=== PATIENT | female | born 1985 | race Caucasian/White ===

== ENCOUNTER 2017-02-03 14:19 | Inpatient (IN) | payer MEDICAID, OTHER ==
[2017-02-03] MEDS ORDERED: PITOCin/NS 20 UNIT/1000ML DRIP 20 UNITS/1,000 ML BAG IV SCH (15:00)
[2017-02-03] MEDS ORDERED: NORCO 5/325 PO PRN (15:33)
[2017-02-03] MEDS ORDERED: DULCOLAX PR PRN (15:33)
[2017-02-03] MEDS ORDERED: BENADRYL PO PRN (15:33)
[2017-02-03] MEDS ORDERED: ZOFRAN IV PRN (15:33)
[2017-02-03] MEDS ORDERED: PHENERGAN PR PRN (15:33)
[2017-02-03] MEDS ORDERED: PHENERGAN PO PRN (15:33)
[2017-02-03] MEDS ORDERED: TYLENOL PO PRN (15:33)
[2017-02-03] MEDS ORDERED: MILK OF MAGNESIA PO PRN (15:33)
[2017-02-03] MEDS ORDERED: LANSINOH TP PRN (15:33)
[2017-02-03] MEDS ORDERED: TUCKS PAD TP PRN (15:33)
[2017-02-03] MEDS ORDERED: SODIUM CHLORIDE FLUSH SYRINGE 10 ML IV NR (16:00)
[2017-02-03] MEDS: MOTRIN PO SCH ×2 (16:24→22:28)
[2017-02-03] MEDS ORDERED: PITOCin/NS 20 UNIT/1000ML DRIP 20,000 MILLIUNITS/1,000 ML BAG IV ONE (17:06)
[2017-02-03 17:07] LABS: Urine Drugs of Abuse Note Disclamer
[2017-02-03 17:16] LABS: Basophils % (Auto) 0.2 % (0.0-1.8); Hematocrit 36.9 % (30.3-42.9); Hemoglobin 12.2 gm/dl (10.1-14.3); Mean Corpuscular HGB Conc 33 % (30-34); Mean Corpuscular Hemoglobin 28 pg (28-32); Mean Corpuscular Volume 85 fl (79-97); Platelet Count 282 K/mm3 (140-440); Red Blood Count 4.36 M/mm3 (3.65-5.03); Red Cell Distribution Width 15.3 % (13.2-15.2); White Blood Count 11.8 K/mm3 (4.5-11.0)
[2017-02-03 17:34] LABS: HIV-1 Antigen p24 Non React (Non React); HIVR-1/2 Ab Non React (Non React)
--- NOTE | 2017-02-03 20:08 | History and Physical Report ---
History of Present Illness Date of examination: 02/03/17 Date of admission: 02/03/17 14:19 Chief complaint: Home delivery History of present illness: 31y/o @ 40+1 weeks presents to L&D after having a home delivery performed by the patient's spouse. states the placenta delivered and was thrown away. Patient did not have care during this . Past History Past Medical History: no pertinent history Past Surgical History: no surgical history Social history: - Obstetrical History Expected Date of Delivery: 02/02/17 Actual Gestation: 40 Week(s) 1 Day(s) : 6 Para: 5 Hx # Term Pregnancies: 5 Number of Pregnancies: 0 Spontaneous Abortions: 1 Induced : 0 Number of Living Children: 5 Medications and Allergies Allergies Allergy/AdvReac Type Severity Reaction Status Date / Time No Known Allergies Allergy Verified 12/05/14 14:48 Home Medications Medication Instructions Recorded Confirmed Last Taken Type Ferrous Sulfate [Feosol 325 MG tab] 325 mg PO BID #60 tablet 02/02/16 Unknown Rx Ibuprofen [Motrin 600 MG tab] 600 mg PO Q6HR #30 tablet 02/02/16 Unknown Rx Vit-Fe Fumar-FA [ 1 each PO QDAY #30 tablet 02/02/16 Unknown Rx Vitamin] Active Meds: Active Medications Acetaminophen (Tylenol) 650 mg PO Q4H PRN PRN Reason: Pain MILD(1-3)/Fever >100.5/[place] Acetaminophen/Hydrocodone Bitart ([place] 5/325) 2 each PO Q6H PRN PRN Reason: Pain, Moderate (4-6) Bisacodyl (Dulcolax) 10 mg PA BID PRN PRN Reason: Constipation Diphenhydramine HCl (Benadryl) 25 mg PO Q6H PRN PRN Reason: Itching Oxytocin/Sodium Chloride (Pitocin/Ns 20 Unit/1000ml Drip) 20 units in 1,000 mls @ 0 mls/hr IV DIRECT RODRÍGUEZ PRN Reason: As Directed Ibuprofen (Motrin) 600 mg PO Q6H RODRÍGUEZ Last Admin: 02/03/17 16:24 Dose: 600 mg Influenza Virus Vaccine Quadrival (Fluarix Quad [id number](36 Mos+) 0.5 ml IM .ONCE ONE Stop: 02/04/17 12:01 Magnesium Hydroxide (Milk Of Magnesia) 30 ml PO HS PRN PRN Reason: Constipation Multi-Ingredient Ointment (Lansinoh) 1 applic TP PRN PRN PRN Reason: Sore Nipples Ondansetron HCl (Zofran) 4 mg IV Q8H PRN PRN Reason: Nausea And Vomiting Promethazine HCl (Phenergan) 25 mg PA Q6H PRN PRN Reason: Nausea And Vomiting Promethazine HCl (Phenergan) 25 mg PO Q6H PRN PRN Reason: Nausea And Vomiting Sodium Chloride (Sodium Chloride Flush Syringe 10 Ml) 10 ml IV PRN NR Stop: 02/04/17 15:59 Witch Itzel/Glycerin (Tucks Pad) 1 each TP PRN PRN PRN Reason: Hemorrhoid/cleansing/soothing Review of Systems All systems: negative Genitourinary: vaginal bleeding, leakage of fluid, contractions - Vital Signs Vital signs: Vital Signs Temp 97.9 F 02/03/17 14:20 Temp Pulse Resp BP Pulse Ox 98.1 F 80 18 91/56 97 02/03/17 17:15 02/03/17 17:15 02/03/17 17:15 02/03/17 17:15 02/03/17 14:42 - Physical Exam Breasts: Positive: deferred Cardiovascular: Regular rate Lungs: Positive: Clear to auscultation Abdomen: Positive: normal appearance Results Result Diagrams: 02/03/17 14:30 Abnormal lab results 02/03/17 Range/Units 14:30 WBC 11.8 H (4.5-11.0) K/mm3 RDW 15.3 H (13.2-15.2) % Lymph % (Auto) 6.0 L (13.4-35.0) % Lymph # 0.7 L (1.2-5.4) K/mm3 Seg Neutrophils % 89.7 H (40.0-70.0) % Seg Neutrophils # 10.6 H (1.8-7.7) K/mm3 All other labs normal. Assessment and Plan - Patient Problems (1) Precipitous delivery, delivered (current hospitalization) Current Visit: Yes Status: Acute Plan to address problem: routine care (2) Limited care Current Visit: No Status: Acute
--- NOTE | 2017-02-03 20:14 | Procedure Note ---
OB Delivery Note - Delivery Date of Delivery: 02/03/17 Surgeon: MARLEY BALDERAS - Vaginal Intrapartum events: no care, other(please specify) (precipitious delivery) Route of delivery: Anesthesia: none Delivery comments: Patient had a precipitous delivery performed at home by her spouse. Liveborn male infant weight 3.2Kg. Spouse states that placenta was thrown away. Fundus firm and bleeding scant at presentation. - Infant A Infant Gender: Male (weight 3.2Kg)
[2017-02-04] MEDS: MOTRIN PO SCH ×3 (03:59→23:44)
[2017-02-04 06:14] LABS: Hematocrit 29.4 % (30.3-42.9); Hemoglobin 9.6 gm/dl (10.1-14.3)
--- NOTE | 2017-02-04 10:16 | Progress Note ---
Assessment and Plan PPD#1 precipitous ( placneta discarded on way to hospital) evaluated perineum small left labial lac not bleeding small clot in vault removed, uterus firm below umbilicus routine PP care iron for anemia 12-9 Hemoglobin VSS consider d/c home tomorrow Subjective - Subjective Date of service: 02/04/17 Principal diagnosis: precipitous Patient reports: appetite normal, voiding normally, pain well controlled, flatus , ambulating normally : doing well Objective - Vital Signs Latest vital signs: Vital Signs Temp Pulse Resp BP BP Pulse Ox 02/04/17 08:10 98.2 F 59 L 18 91/59 02/04/17 03:59 16 02/04/17 00:51 98.8 F 71 20 100/58 02/03/17 23:28 16 02/03/17 22:28 16 02/03/17 20:50 98.7 F 82 16 97/51 02/03/17 17:15 98.1 F 80 18 91/56 02/03/17 16:56 99.3 F 16 02/03/17 16:37 75 101/63 02/03/17 16:22 81 99/56 02/03/17 16:07 89 100/58 02/03/17 15:52 88 101/55 02/03/17 15:37 81 102/77 02/03/17 15:22 83 103/63 02/03/17 15:07 85 99/61 02/03/17 14:52 90 105/66 02/03/17 14:42 95 H 97 02/03/17 14:37 96 H 107/66 97 02/03/17 14:32 88 98 02/03/17 14:27 99 H 97 02/03/17 14:20 97.9 F Intake and Output 02/03/17 02/04/17 02/04/17 23:59 07:59 15:59 Intake Total 600 240 240 Output Total 700 Balance -100 240 240 Intake: Oral 240 Intake, Free Water 600 240 Output: Urine 700 Void 700 Other: Total, Intake Amount 240 Total, Output Amount 300 # Voids Void 1 - Exam Breasts: Present: normal Cardiovascular: Present: Regular rate, Normal S1 Lungs: Present: Clear to auscultation, Normal air movement Abdomen: Present: normal appearance, soft, tenderness, guarding, normal bowel sounds. Absent: distention Vulva: both: normal Uterus: Present: normal, firm, bogginess, fundal height below umbilicus. Absent : tenderness Extremities: Present: normal Deep Tendon Reflex Grade: Normal +2 Incision: Present: normal - Labs Labs: Abnormal lab results 02/03/17 02/04/17 Range/Units 14:30 05:13 WBC 11.8 H (4.5-11.0) K/mm3 Hgb 9.6 L (10.1-14.3) gm/dl Hct 29.4 L D (30.3-42.9) % RDW 15.3 H (13.2-15.2) % Lymph % (Auto) 6.0 L (13.4-35.0) % Lymph # 0.7 L (1.2-5.4) K/mm3 Seg Neutrophils % 89.7 H (40.0-70.0) % Seg Neutrophils # 10.6 H (1.8-7.7) K/mm3
[2017-02-04] MEDS ORDERED: Fluarix Quad 2017-2018(36 MOS+ IM ONE (12:00)
[2017-02-05] MEDS: MOTRIN PO SCH ×4 (01:11→17:43)
--- NOTE | 2017-02-05 08:21 | Progress Note ---
Assessment and Plan - Patient Problems (1) Precipitous delivery, delivered (current hospitalization) Current Visit: Yes Status: Acute Plan to address problem: patient doing well discharge once infant is released (2) Limited care Current Visit: No Status: Acute Subjective - Subjective Date of service: 02/05/17 Principal diagnosis: precipitous Interval history: Patient without complaints. Tolerating regular diet Patient reports: appetite normal, voiding normally, pain well controlled : doing well Objective - Vital Signs Latest vital signs: Vital Signs Temp Pulse Resp BP BP Pulse Ox 02/05/17 02:14 97.9 F 60 18 99/50 95 02/04/17 16:45 99 F 67 18 95/56 02/04/17 13:17 97.9 F 65 18 96/56 Intake and Output 02/04/17 02/05/17 02/05/17 22:59 06:59 14:59 Intake Total 560 360 Balance 560 360 Intake: Oral 560 Intake, Free Water 360 Other: Total, Intake Amount 240 # Voids Void 1 2 - Exam Abdomen: Present: normal appearance, soft Uterus: Present: normal, firm
--- NOTE | 2017-02-05 08:23 | Discharge Summary ---
Providers - Providers Date of Admission: 02/03/17 14:19 Date of discharge: 02/05/17 Attending physician: MARLEY BALDERAS Primary care physician: MARLEY BALDERAS Hospitalization Reason for admission: active labor Delivery: Discharge diagnosis: IUP at term delivered [place] baby: male Hospital course: Patient has a precipitous delivery in route to hospital. No care during . uncomplicated Condition at discharge: Good Disposition: DC-01 TO HOME OR SELFCARE - Discharge Diagnoses (1) Precipitous delivery, delivered (current hospitalization) Status: Acute (2) Limited care Status: Acute Plan - Discharge Medications Prescriptions: HYDROcodone/APAP 5-325 [[place] 5/325] 1 each PO Q6HR PRN #30 tablet PRN Reason: Pain Ibuprofen [Motrin] 800 mg PO Q8HR PRN #60 tablet PRN Reason: Pain - Provider Discharge Summary Activity: no sex for 6 weeks, no heavy lifting 4 weeks, no strenuous exercise Diet: routine Instructions: routine Additional instructions: [] Smoking cessation referral if applicable(refer to patient education folder for contact #) [] Refer to [facility] Booklet Call your doctor immediately for: * Fever > 100.5 * Heavy vaginal bleeding ( >1 pad per hour) * Severe persistent headache * Shortness of breath * Reddened, hot, painful area to leg or breast * followup 4 weeks - Follow up plan
[2017-02-05 18:05] VITALS: BP 101/63
== END 2017-02-05 20:50 | disposition home or self-care (01) | DRG 776 ==
LOC: LD 14:19 → OB 17:57
PROVIDERS: ADMIT Obstetrics & Gynecology; ATTEND Obstetrics & Gynecology
PROC: 3E0234Z Introduction of Serum, Toxoid and Vaccine into Muscle, Percutaneous Approach (ICD-10-PCS; principal; 2017-02-04)
DX: O90.81 Anemia of the puerperium (principal); D64.9 Anemia, unspecified; Z23 Encounter for immunization
CPT/HCPCS: 36415; 80307; 85014; 85018; 85025; 86592; 86706; 86762; 86803; 86850; 86900; 86901; 87806; 90471; 90686; 99211; G0463; J2590